=== PATIENT | male | born 1985 | race Hispanic/Latino ===

== ENCOUNTER 2017-09-17 22:50 | Emergency (ER) | payer MEDICARE ==
[~2017-09-17] VITALS: Ht 177.8 cm; Wt 113.4 kg
[~2017-09-17 22:50] MED LIST: SEVELAMER HYDROCHLORIDE; Z.0.CARVEDILOL25 MG; Z.0.LISINOPRIL20 MG
--- NOTE | 2017-09-18 02:26 | Diagnostic Imaging Report ---
EXAMINATION: CHEST 2 VIEWS INDICATION: cough. COMPARISON: None FINDINGS: TUBES and LINES: None. LUNGS: Lungs are not well inflated. There are bibasilar atelectasis. There is mild prominence of the central pulmonary vasculature, consistent with pulmonary venous congestion. PLEURA: No pleural effusion or pneumothorax. HEART AND MEDIASTINUM: The cardiomediastinal silhouette is unremarkable. BONES AND SOFT TISSUES: No acute osseous lesion. Soft tissues are unremarkable. UPPER ABDOMEN: No free air under the diaphragm. IMPRESSION: No acute thoracic abnormality. Signed by: Dr. Kwame Lanier M.D. on 09/18/2017 2:22 AM
== END 2017-09-18 03:47 | disposition home or self-care (01) ==
LOC: ER 22:50
DX: R05 Cough (principal); J11.1 Influenza due to unidentified influenza virus with other respiratory manifestations
CPT/HCPCS: 71020; 87400; 99283